=== PATIENT | male | born 1960 | race Caucasian/White ===

== ENCOUNTER 2017-10-22 14:16 | Inpatient (IN) | payer MEDICARE, MEDICAID ==
[~2017-10-22] VITALS: Ht 188 cm; Wt 75.9 kg
[2017-10-22 15:23] LABS: BASOPHILS % (AUTO) 0 % (0-1); EOSINOPHILS # (AUTO) 0.1 X10'3 (0-0.9); EOSINOPHILS % (AUTO) 0.8 % (0-6); LYMPHOCYTES # (AUTO) 1.4 X10'3 (1.1-4.8); LYMPHOCYTES % (AUTO) 9.7 % (21-51); MEAN CORPUSCULAR HEMOGLOBIN 29.8 PG (27.0-31.0); MEAN CORPUSCULAR HGB CONC 33.4 % (33.0-36.5); MEAN CORPUSCULAR VOLUME 89.2 FL (78-98); MEAN PLATELET VOLUME 7.4 FL (7.4-10.4); MONOCYTES # (AUTO) 2.1 X10'3 (0-0.9); MONOCYTES % (AUTO) 14.5 % (2-12); NEUTROPHILS # (AUTO) 10.6 X10'3 (1.8-7.7); PLATELET COUNT 323 X10'3 (140-440); RED BLOOD COUNT 5.04 X10'6 (4.70-6.10); RED CELL DISTRIBUTION WIDTH 15.9 % (11.5-14.5); WHITE BLOOD COUNT 14.1 X10'3 (4.5-11.0)
[2017-10-22] MEDS ORDERED: normal saline 1000ML IV soln IVB ONE (15:25)
[2017-10-22] MEDS ORDERED: LORazepam 2 mg/ml vial IV ONE (15:25)
[2017-10-22] MEDS ORDERED: methylPREDNISolone sod succ 125mg/2ml vial IV ONE (15:25)
[2017-10-22] MEDS ORDERED: ipratropium/albuterol 3ml nebule NEB ONE (15:25)
[2017-10-22 15:27] LABS: CLARITY,URINE Clear (Clear); COLOR,URINE Yellow (Yellow); GLUCOSE, URINE Negative (Neg); KETONES,URINE Negative (Neg); LEUKOCYTE ESTERASE ,URINE Negative (Neg); NITRITES, URINE Negative (Neg); OCCULT BLOOD,URINE Negative (Neg); PROTEIN,URINE Negative (Neg); UROBILINOGEN,URINE 0.2 E.U/dL (0.2-1.0)
[2017-10-22 15:30] LABS: UA COLLECTION TYPE VOIDED
[2017-10-22] MEDS ORDERED: ibuprofen tablet 400 MG TABLET PO ONE (15:30)
[2017-10-22 15:32] LABS: PARTIAL THROMBOPLASTIN TIME 30 SECONDS (22-32); PROTHROMBIN TIME 10.7 SECONDS (9.0-12.0)
[2017-10-22] MEDS ORDERED: levoFLOXACIN-Levaquin 750MG/D5 150 ML IV STA (15:35)
[2017-10-22 15:46] LABS: ALANINE AMINOTRANSFERASE 37 U/L (12-78); ALBUMIN 3.2 G/DL (3.4-5.0); ALBUMIN/GLOBULIN RATIO 0.7 (1.1-1.5); ALKALINE PHOSPHATASE 42 IU/L (46-116); ANION GAP 5 (8-16); ASPARTATE AMINO TRANSFERASE 27 U/L (10-37); BILIRUBIN,TOTAL 0.4 MG/DL (0.1-1.0); BLOOD UREA NITROGEN 11 MG/DL (7-18); BUN/CREATININE RATIO 13.6 (5.4-32.0); CALCIUM 9.1 MG/DL (8.5-10.1); CHLORIDE 98 MMOL/L (99-107); CREATININE 0.81 MG/DL (0.60-1.10); GLUCOSE 97 MG/DL (70-104); POTASSIUM 4.1 MMOL/L (3.5-5.1); SODIUM 138 MMOL/L (135-145); TOTAL CARBON DIOXIDE 34.9 MMOL/L (24-32); TOTAL PROTEIN 7.9 G/DL (6.4-8.2); eGFR > 90 ML/MIN
[2017-10-22 16:04] LABS: ANISOCYTOSIS 1+; PLATELET ESTIMATE NORMAL; TOTAL CELLS COUNTED 100
[2017-10-22 16:21] LABS: ABG BASE EXCESS 6.9 mmol/L (-2.0-3.0); ABG HCO3 33.5 mmol/L (22.0-26.0); ABG OXYGEN SATURATION 94.9 % (95-98); ABG PCO2 (T) 55.3 mmHg (35.0-48.0); ABG PO2 (T) 72.5 mmHg (83-108); ALLEN'S TEST Positive; FCOHb 1.5 % (0.5-1.5); FMetHb 0.2 % (0.3-1.12); FO2Hb 93.3 % (94-100); TOTAL HEMOGLOBIN 14.4 G/dl (14.0-18.0)
[2017-10-22] MEDS ORDERED: magnesium 4gm in 100ml NS 100 ML IV PRN (16:50)
[2017-10-22] MEDS ORDERED: potassium Cl 20 mEq SR tablet PO PRN ×2 (16:50)
[2017-10-22] MEDS ORDERED: magnesium 2GM in 50ml NS 50 ML IV PRN (16:50)
[2017-10-22] MEDS ORDERED: morphine 4 MG/ML inj SYRINge IV PRN (16:50)
[2017-10-22] MEDS ORDERED: magnesium Cl slow-release 64mg tablet PO PRN (16:50)
[2017-10-22] MEDS ORDERED: acetaminophen 325mg tablet PO PRN ×2 (16:50)
[2017-10-22] MEDS ORDERED: ondansetron/PF 4mg/2ml inj IV PRN (16:50)
[2017-10-22] MEDS ORDERED: mag hydrox/Alum hydrox/simeth 30ml oral suspension PO PRN (16:50)
[2017-10-22] MEDS ORDERED: magnesium hydroxide 30ml (MOM) UD suspension PO PRN (16:50)
[2017-10-22] MEDS ORDERED: potassium Cl 40MEQ/NS 500ml 500 ML IV PRN ×2 (16:50)
[2017-10-22] MEDS: normal saline 1000ml 1,000 ML IV SCH (17:33)
[2017-10-22] MEDS ORDERED: HYDROcodone/acetaminophen 10/325mg tab PO ONE (18:15)
[2017-10-22] MEDS: docusate sod 100mg capsule PO SCH (20:17)
[2017-10-22] MEDS: heparin, porcine 5000 units/ml vial SQ SCH (20:17)
[2017-10-22] MEDS: albuterol 2.5 MG/3 ML nebule NEB SCH (20:19)
[2017-10-23] VITALS: BP 119/61
[2017-10-23] MEDS: diazepam 2mg tablet PO PRN ×2 (00:51→13:36)
[2017-10-23] MEDS: HYDROcodone/acetaminophen 10/325mg tab PO PRN ×2 (00:51→09:03)
[2017-10-23] MEDS: albuterol 2.5 MG/3 ML nebule NEB SCH ×4 (02:33→20:21)
[2017-10-23 03:01] LABS: BASOPHILS % (AUTO) 0.1 % (0-1); EOSINOPHILS # (AUTO) 0.2 X10'3 (0-0.9); EOSINOPHILS % (AUTO) 1.8 % (0-6); HEMATOCRIT 38.8 % (42.0-52.0); HEMOGLOBIN 13.1 g/dl (14.0-17.9); LYMPHOCYTES # (AUTO) 0.4 X10'3 (1.1-4.8); LYMPHOCYTES % (AUTO) 4.1 % (21-51); MEAN CORPUSCULAR HEMOGLOBIN 29.9 PG (27.0-31.0); MEAN CORPUSCULAR HGB CONC 33.9 % (33.0-36.5); MEAN CORPUSCULAR VOLUME 88.4 FL (78-98); MEAN PLATELET VOLUME 7.3 FL (7.4-10.4); MONOCYTES # (AUTO) 0.3 X10'3 (0-0.9); MONOCYTES % (AUTO) 2.9 % (2-12); NEUTROPHILS # (AUTO) 9.7 X10'3 (1.8-7.7); NEUTROPHILS % (AUTO) 91.1 % (42-75); PLATELET COUNT 286 X10'3 (140-440); RED BLOOD COUNT 4.39 X10'6 (4.70-6.10); RED CELL DISTRIBUTION WIDTH 15.3 % (11.5-14.5); WHITE BLOOD COUNT 10.6 X10'3 (4.5-11.0)
[2017-10-23 03:18] LABS: ALANINE AMINOTRANSFERASE 35 U/L (12-78); ALBUMIN 2.6 G/DL (3.4-5.0); ALBUMIN/GLOBULIN RATIO 0.6 (1.1-1.5); ALKALINE PHOSPHATASE 33 IU/L (46-116); ANION GAP 3 (8-16); ASPARTATE AMINO TRANSFERASE 23 U/L (10-37); BILIRUBIN,TOTAL 0.2 MG/DL (0.1-1.0); BLOOD UREA NITROGEN 18 MG/DL (7-18); BUN/CREATININE RATIO 22.5 (5.4-32.0); CALCIUM 8.7 MG/DL (8.5-10.1); CHLORIDE 102 MMOL/L (99-107); GLUCOSE 202 MG/DL (70-104); MAGNESIUM 2.4 MG/DL (1.5-2.4); POTASSIUM 4.6 MMOL/L (3.5-5.1); SODIUM 140 MMOL/L (135-145); TOTAL CARBON DIOXIDE 34.9 MMOL/L (24-32); TOTAL PROTEIN 6.8 G/DL (6.4-8.2); eGFR > 90 ML/MIN
[2017-10-23 07:00] VITALS: BP 106/69
[2017-10-23] MEDS: K and/or MAG REPLACEMENT MC SCH (08:00)
[2017-10-23] MEDS: docusate sod 100mg capsule PO SCH ×2 (08:56→19:38)
[2017-10-23] MEDS: methylPREDNISolone sod succ 125mg/2ml vial IV SCH (08:56)
[2017-10-23] MEDS: heparin, porcine 5000 units/ml vial SQ SCH ×2 (08:57→19:38)
[2017-10-23] MEDS: cefTRIAXone 1g/NS 100ml IVPB 100 ML IV SCH (09:03)
[2017-10-23 11:00] VITALS: BP 125/85
[2017-10-23] MEDS: lactobacillus rhamnosus 10,000 MMU CELLS/CAPSULE PO SCH (19:38)
[2017-10-23] MEDS: morphine 4 MG/ML inj SYRINge IV PRN (19:50)
[2017-10-23 20:00] VITALS: BP 146/82
[2017-10-23] MEDS: guaiFENesin 200 MG/10 ML oral syrup UD cup PO PRN (21:21)
[2017-10-24] VITALS: BP 134/79
[2017-10-24] MEDS: diazepam 2mg tablet PO PRN ×2 (00:08→16:27)
[2017-10-24] MEDS: morphine 4 MG/ML inj SYRINge IV PRN ×2 (00:09→21:00)
[2017-10-24] MEDS: albuterol 2.5 MG/3 ML nebule NEB SCH ×4 (03:34→20:34)
[2017-10-24] MEDS: HYDROcodone/acetaminophen 5mg/325mg tablet PO PRN ×2 (04:39→16:26)
[2017-10-24] MEDS: guaiFENesin 200 MG/10 ML oral syrup UD cup PO PRN (04:39)
[2017-10-24 04:53] LABS: BASOPHILS % (AUTO) 0 % (0-1); EOSINOPHILS # (AUTO) 0.3 X10'3 (0-0.9); EOSINOPHILS % (AUTO) 1.5 % (0-6); HEMATOCRIT 39.6 % (42.0-52.0); HEMOGLOBIN 13.4 g/dl (14.0-17.9); LYMPHOCYTES # (AUTO) 1.1 X10'3 (1.1-4.8); MEAN CORPUSCULAR HEMOGLOBIN 30.2 PG (27.0-31.0); MEAN CORPUSCULAR HGB CONC 33.9 % (33.0-36.5); MEAN CORPUSCULAR VOLUME 89.1 FL (78-98); MEAN PLATELET VOLUME 7.5 FL (7.4-10.4); MONOCYTES # (AUTO) 2.1 X10'3 (0-0.9); MONOCYTES % (AUTO) 11.9 % (2-12); NEUTROPHILS # (AUTO) 14.2 X10'3 (1.8-7.7); NEUTROPHILS % (AUTO) 80.6 % (42-75); PLATELET COUNT 344 X10'3 (140-440); RED BLOOD COUNT 4.44 X10'6 (4.70-6.10); WHITE BLOOD COUNT 17.6 X10'3 (4.5-11.0)
[2017-10-24 05:30] LABS: ALANINE AMINOTRANSFERASE 31 U/L (12-78); ALBUMIN 2.6 G/DL (3.4-5.0); ALBUMIN/GLOBULIN RATIO 0.6 (1.1-1.5); ALKALINE PHOSPHATASE 36 IU/L (46-116); ANION GAP 2 (8-16); ASPARTATE AMINO TRANSFERASE 20 U/L (10-37); BILIRUBIN,TOTAL 0.1 MG/DL (0.1-1.0); BLOOD UREA NITROGEN 20 MG/DL (7-18); CHLORIDE 102 MMOL/L (99-107); CREATININE 0.77 MG/DL (0.60-1.10); GLUCOSE 120 MG/DL (70-104); MAGNESIUM 2.1 MG/DL (1.5-2.4); SODIUM 142 MMOL/L (135-145); TOTAL CARBON DIOXIDE 37.6 MMOL/L (24-32); TOTAL PROTEIN 6.7 G/DL (6.4-8.2); eGFR > 90 ML/MIN
[2017-10-24] MEDS: K and/or MAG REPLACEMENT MC SCH (07:10)
[2017-10-24 08:00] VITALS: BP 127/70
[2017-10-24] MEDS: heparin, porcine 5000 units/ml vial SQ SCH ×2 (08:33→19:48)
[2017-10-24] MEDS: cefTRIAXone 1g/NS 100ml IVPB 100 ML IV SCH (08:33)
[2017-10-24] MEDS: methylPREDNISolone sod succ 125mg/2ml vial IV SCH (08:33)
[2017-10-24] MEDS: lactobacillus rhamnosus 10,000 MMU CELLS/CAPSULE PO SCH ×2 (08:34→19:48)
[2017-10-24] MEDS: docusate sod 100mg capsule PO SCH ×2 (08:34→19:48)
[2017-10-24 12:00] VITALS: BP 147/84
[2017-10-24] MEDS: normal saline 1000ml 1,000 ML IV SCH (16:29)
[2017-10-24 18:00] VITALS: BP 156/96
[2017-10-24] MEDS: LORazepam 2 mg/ml vial IV PRN (20:05)
[2017-10-25] VITALS: BP 137/83
[2017-10-25] MEDS: HYDROcodone/acetaminophen 10/325mg tab PO PRN ×2 (03:10→09:13)
[2017-10-25] MEDS: diazepam 2mg tablet PO PRN (03:10)
[2017-10-25] MEDS: albuterol 2.5 MG/3 ML nebule NEB SCH ×4 (03:37→21:05)
[2017-10-25 05:56] LABS: ALANINE AMINOTRANSFERASE 34 U/L (12-78); ALBUMIN 2.9 G/DL (3.4-5.0); ALBUMIN/GLOBULIN RATIO 0.7 (1.1-1.5); ALKALINE PHOSPHATASE 39 IU/L (46-116); ANION GAP 2 (8-16); ASPARTATE AMINO TRANSFERASE 23 U/L (10-37); BILIRUBIN,TOTAL 0.2 MG/DL (0.1-1.0); BLOOD UREA NITROGEN 20 MG/DL (7-18); BUN/CREATININE RATIO 23.5 (5.4-32.0); CALCIUM 8.9 MG/DL (8.5-10.1); CHLORIDE 102 MMOL/L (99-107); CREATININE 0.85 MG/DL (0.60-1.10); GLUCOSE 90 MG/DL (70-104); MAGNESIUM 2.2 MG/DL (1.5-2.4); POTASSIUM 4.3 MMOL/L (3.5-5.1); SODIUM 145 MMOL/L (135-145); TOTAL PROTEIN 7.1 G/DL (6.4-8.2); eGFR > 90 ML/MIN
[2017-10-25 05:58] LABS: TOTAL CARBON DIOXIDE 40.7 MMOL/L (24-32)
[2017-10-25 07:00] VITALS: BP 143/87
[2017-10-25 07:01] LABS: BASOPHILS # (AUTO) 0.1 X10'3 (0-0.2); BASOPHILS % (AUTO) 0.8 % (0-1); EOSINOPHILS % (AUTO) 0 % (0-6); HEMOGLOBIN 14.4 g/dl (14.0-17.9); LYMPHOCYTES # (AUTO) 1.2 X10'3 (1.1-4.8); LYMPHOCYTES % (AUTO) 11.3 % (21-51); MEAN CORPUSCULAR HEMOGLOBIN 29.6 PG (27.0-31.0); MEAN CORPUSCULAR HGB CONC 33.4 % (33.0-36.5); MEAN CORPUSCULAR VOLUME 88.5 FL (78-98); MEAN PLATELET VOLUME 7.9 FL (7.4-10.4); MONOCYTES # (AUTO) 1.4 X10'3 (0-0.9); MONOCYTES % (AUTO) 13.2 % (2-12); NEUTROPHILS % (AUTO) 74.7 % (42-75); PLATELET COUNT 395 X10'3 (140-440); RED BLOOD COUNT 4.86 X10'6 (4.70-6.10); RED CELL DISTRIBUTION WIDTH 15.6 % (11.5-14.5); WHITE BLOOD COUNT 10.7 X10'3 (4.5-11.0)
[2017-10-25] MEDS: K and/or MAG REPLACEMENT MC SCH (08:00)
[2017-10-25] MEDS: docusate sod 100mg capsule PO SCH ×2 (09:13→20:17)
[2017-10-25] MEDS: lactobacillus rhamnosus 10,000 MMU CELLS/CAPSULE PO SCH ×2 (09:13→20:17)
[2017-10-25] MEDS: methylPREDNISolone sod succ 125mg/2ml vial IV SCH (09:14)
[2017-10-25] MEDS: cefTRIAXone 1g/NS 100ml IVPB 100 ML IV SCH (09:14)
[2017-10-25] MEDS: LORazepam 2 mg/ml vial IV PRN ×3 (09:15→21:34)
[2017-10-25] MEDS: heparin, porcine 5000 units/ml vial SQ SCH ×2 (09:16→20:18)
[2017-10-25 11:54] VITALS: BP 151/89
[2017-10-25] MEDS: HYDROcodone/acetaminophen 5mg/325mg tablet PO PRN (15:25)
[2017-10-25] MEDS: LACTOSE-FREE FOOD 237ML (BOOST) PO SCH (18:00)
[2017-10-25 19:00] VITALS: BP 163/94
[2017-10-26] VITALS: BP 140/92
[2017-10-26] MEDS: temazepam 15mg capsule PO PRN ×2 (00:20→21:52)
[2017-10-26] MEDS: albuterol 2.5 MG/3 ML nebule NEB SCH ×6 (02:21→22:03)
[2017-10-26 05:43] LABS: BASOPHILS # (AUTO) 0.1 X10'3 (0-0.2); BASOPHILS % (AUTO) 1.1 % (0-1); EOSINOPHILS % (AUTO) 0.4 % (0-6); HEMATOCRIT 43.3 % (42.0-52.0); HEMOGLOBIN 14.3 g/dl (14.0-17.9); LYMPHOCYTES # (AUTO) 1.7 X10'3 (1.1-4.8); LYMPHOCYTES % (AUTO) 21.2 % (21-51); MEAN CORPUSCULAR HEMOGLOBIN 29.7 PG (27.0-31.0); MEAN CORPUSCULAR VOLUME 89.8 FL (78-98); MEAN PLATELET VOLUME 7.6 FL (7.4-10.4); MONOCYTES # (AUTO) 1.5 X10'3 (0-0.9); MONOCYTES % (AUTO) 18.8 % (2-12); NEUTROPHILS # (AUTO) 4.8 X10'3 (1.8-7.7); NEUTROPHILS % (AUTO) 58.5 % (42-75); PLATELET COUNT 395 X10'3 (140-440); RED BLOOD COUNT 4.82 X10'6 (4.70-6.10); RED CELL DISTRIBUTION WIDTH 15.1 % (11.5-14.5); WHITE BLOOD COUNT 8.2 X10'3 (4.5-11.0)
[2017-10-26 07:00] VITALS: BP 150/93
[2017-10-26] MEDS: docusate sod 100mg capsule PO SCH ×2 (08:00→21:52)
[2017-10-26] MEDS: lactobacillus rhamnosus 10,000 MMU CELLS/CAPSULE PO SCH ×2 (08:00→21:52)
[2017-10-26] MEDS: cefTRIAXone 1g/NS 100ml IVPB 100 ML IV SCH (08:00)
[2017-10-26] MEDS: LACTOSE-FREE FOOD 237ML (BOOST) PO SCH ×3 (08:00→17:52)
[2017-10-26] MEDS: K and/or MAG REPLACEMENT MC SCH (08:00)
[2017-10-26] MEDS: methylPREDNISolone sod succ 125mg/2ml vial IV SCH (08:00)
[2017-10-26] MEDS: heparin, porcine 5000 units/ml vial SQ SCH ×2 (09:18→20:00)
[2017-10-26 12:00] VITALS: BP 148/90
[2017-10-26 12:27] LABS: ALANINE AMINOTRANSFERASE 55 U/L (12-78); ALBUMIN/GLOBULIN RATIO 0.6 (1.1-1.5); ALKALINE PHOSPHATASE 41 IU/L (46-116); ANION GAP 2 (8-16); ASPARTATE AMINO TRANSFERASE 30 U/L (10-37); BILIRUBIN,TOTAL 0.2 MG/DL (0.1-1.0); BLOOD UREA NITROGEN 18 MG/DL (7-18); BUN/CREATININE RATIO 23.1 (5.4-32.0); CALCIUM 9.1 MG/DL (8.5-10.1); CHLORIDE 97 MMOL/L (99-107); CREATININE 0.78 MG/DL (0.60-1.10); GLUCOSE 133 MG/DL (70-104); POTASSIUM 4.2 MMOL/L (3.5-5.1); SODIUM 141 MMOL/L (135-145); TOTAL PROTEIN 7.7 G/DL (6.4-8.2); eGFR > 90 ML/MIN
[2017-10-26 12:39] LABS: TOTAL CARBON DIOXIDE 41.7 MMOL/L (24-32)
[2017-10-26] MEDS: LORazepam 2 mg/ml vial IV PRN (15:03)
[2017-10-26] MEDS: HYDROcodone/acetaminophen 10/325mg tab PO PRN ×2 (15:03→21:56)
[2017-10-26] MEDS: normal saline 1000ml 1,000 ML IV SCH (16:47)
[2017-10-26] MEDS ORDERED: PRED10TA (17:17)
[2017-10-26] MEDS ORDERED: TIOT18CA3 (17:17)
[2017-10-26] MEDS ORDERED: DIAZ2TAB3 (17:17)
[2017-10-26] MEDS ORDERED: LEVA15HF4 INH (17:17)
[2017-10-26] MEDS ORDERED: HYDR-3964 (17:17)
[2017-10-26] MEDS ORDERED: BUDE10.2 (17:17)
[2017-10-26 19:00] VITALS: BP 170/87
[2017-10-26] MEDS: guaiFENesin 200 MG/10 ML oral syrup UD cup PO PRN (21:51)
[2017-10-26] MEDS: diazepam 2mg tablet PO PRN (21:53)
[2017-10-26 23:59] VITALS: BP 155/80
[2017-10-27] MEDS: albuterol 2.5 MG/3 ML nebule NEB SCH ×4 (02:00→20:50)
[2017-10-27 05:15] LABS: BASOPHILS % (AUTO) 0.2 % (0-1); EOSINOPHILS # (AUTO) 0.1 X10'3 (0-0.9); EOSINOPHILS % (AUTO) 0.8 % (0-6); HEMATOCRIT 41.9 % (42.0-52.0); LYMPHOCYTES # (AUTO) 2.3 X10'3 (1.1-4.8); LYMPHOCYTES % (AUTO) 27.4 % (21-51); MEAN CORPUSCULAR HEMOGLOBIN 29.6 PG (27.0-31.0); MEAN CORPUSCULAR HGB CONC 33.5 % (33.0-36.5); MEAN CORPUSCULAR VOLUME 88.4 FL (78-98); MEAN PLATELET VOLUME 7.2 FL (7.4-10.4); MONOCYTES # (AUTO) 1.3 X10'3 (0-0.9); MONOCYTES % (AUTO) 15.5 % (2-12); NEUTROPHILS # (AUTO) 4.6 X10'3 (1.8-7.7); NEUTROPHILS % (AUTO) 56.1 % (42-75); PLATELET COUNT 398 X10'3 (140-440); RED BLOOD COUNT 4.74 X10'6 (4.70-6.10); RED CELL DISTRIBUTION WIDTH 13.9 % (11.5-14.5); WHITE BLOOD COUNT 8.2 X10'3 (4.5-11.0)
[2017-10-27 08:00] VITALS: BP 135/90
[2017-10-27] MEDS: K and/or MAG REPLACEMENT MC SCH (08:00)
[2017-10-27] MEDS: LORazepam 2 mg/ml vial IV PRN ×2 (09:49→14:59)
[2017-10-27] MEDS: docusate sod 100mg capsule PO SCH ×2 (09:50→20:00)
[2017-10-27] MEDS: methylPREDNISolone sod succ 125mg/2ml vial IV SCH (09:50)
[2017-10-27] MEDS: lactobacillus rhamnosus 10,000 MMU CELLS/CAPSULE PO SCH ×2 (09:50→19:31)
[2017-10-27] MEDS: cefTRIAXone 1g/NS 100ml IVPB 100 ML IV SCH (09:50)
[2017-10-27] MEDS: heparin, porcine 5000 units/ml vial SQ SCH ×2 (09:50→20:00)
[2017-10-27] MEDS: LACTOSE-FREE FOOD 237ML (BOOST) PO SCH ×3 (09:50→17:50)
[2017-10-27 12:00] VITALS: BP 170/103
[2017-10-27] MEDS: HYDROcodone/acetaminophen 10/325mg tab PO PRN ×2 (12:20→23:58)
[2017-10-27] MEDS: normal saline 1000ml 1,000 ML IV SCH (19:30)
[2017-10-27] MEDS: temazepam 15mg capsule PO PRN (19:31)
[2017-10-27] MEDS: HYDROcodone/acetaminophen 5mg/325mg tablet PO PRN (19:31)
[2017-10-27] MEDS: diazepam 2mg tablet PO PRN (19:32)
[2017-10-27 20:00] VITALS: BP 158/95
[2017-10-28] VITALS: BP 130/98
[2017-10-28] MEDS: albuterol 2.5 MG/3 ML nebule NEB SCH ×2 (02:00→08:21)
[2017-10-28 07:00] VITALS: BP 156/100
[2017-10-28] MEDS: heparin, porcine 5000 units/ml vial SQ SCH (08:00)
[2017-10-28] MEDS: K and/or MAG REPLACEMENT MC SCH (08:00)
[2017-10-28] MEDS: LACTOSE-FREE FOOD 237ML (BOOST) PO SCH ×2 (08:49→13:36)
[2017-10-28] MEDS: diazepam 2mg tablet PO PRN (08:50)
[2017-10-28] MEDS: HYDROcodone/acetaminophen 5mg/325mg tablet PO PRN (08:50)
[2017-10-28] MEDS: cefTRIAXone 1g/NS 100ml IVPB 100 ML IV SCH (08:51)
[2017-10-28] MEDS: docusate sod 100mg capsule PO SCH (08:51)
[2017-10-28] MEDS: lactobacillus rhamnosus 10,000 MMU CELLS/CAPSULE PO SCH (08:51)
[2017-10-28] MEDS ORDERED: predniSONE 20 mg tablet PO SCH (09:10)
[2017-10-28] MEDS ORDERED: prednisone 10mg tablet PO SCH ×3 (09:20→11:30)
[2017-10-28] MEDS ORDERED: LORazepam 1 MG tablet PO ONE (10:55)
[2017-10-28 11:24] VITALS: BP 139/81
[2017-10-28] MEDS ORDERED: FAMO-128 PO (11:46)
[2017-10-28] MEDS ORDERED: LEVO750T21 PO (11:47)
[2017-10-28] MEDS ORDERED: PRED10TA PO (11:49)
[2017-10-29] MEDS ORDERED: prednisone 10mg tablet PO SCH (08:30)
== END 2017-10-28 13:49 | disposition home or self-care (01) | DRG 871 ==
LOC: ER 14:16 → ED HOLD 16:08 → SUR 3N 22:50
PROVIDERS: ADMIT Internal Medicine; ATTEND Internal Medicine
DX: A41.9 Sepsis, unspecified organism (principal); J18.9 Pneumonia, unspecified organism; J96.20 Acute and chronic respiratory failure, unspecified whether with hypoxia or hypercapnia; J44.1 Chronic obstructive pulmonary disease with (acute) exacerbation; J44.0 Chronic obstructive pulmonary disease with (acute) lower respiratory infection; F12.10 Cannabis abuse, uncomplicated; F17.210 Nicotine dependence, cigarettes, uncomplicated; Z99.81 Dependence on supplemental oxygen; Z71.6 Tobacco abuse counseling; Z71.51 Drug abuse counseling and surveillance of drug abuser
CPT/HCPCS: 36415; 36600; 71045; 71270; 80053; 81003; 82803; 83605; 83735; 83880; 84145; 84484; 85018; 85025; 85610; 85730; 87040; 87070; 87502; 87503; 93005; 94640; 94760; 96374; 96375; 97116; 97161; 99285; J0696; J1644; J1956; J2060; J2270; J2930; J7030; J7512